=== PATIENT | male | born 1940 | race American Indian/Alaskan Native ===

== ENCOUNTER 2018-08-06 03:20 | Observation (INO) | payer MEDICARE ==
[2018-08-06 04:07] LABS: Basophils % (Auto) 0.9 % (0.0-1.8); Eosinophils # (Auto) 0.1 K/mm3 (0.0-0.4); Eosinophils % (Auto) 2.5 % (0.0-4.3); Hematocrit 41.2 % (35.5-45.6); Hemoglobin 14.1 gm/dl (11.8-15.2); Lymphocytes # (Auto) 0.5 K/mm3 (1.2-5.4); Lymphocytes % (Auto) 15.1 % (13.4-35.0); Mean Corpuscular HGB Conc 34 % (32-34); Mean Corpuscular Volume 91 fl (84-94); Monocytes # (Auto) 0.3 K/mm3 (0.0-0.8); Monocytes % (Auto) 8.5 % (0.0-7.3); Platelet Count 242 K/mm3 (140-440); Red Blood Count 4.52 M/mm3 (3.65-5.03); Red Cell Distribution Width 13.1 % (13.2-15.2)
--- NOTE | 2018-08-06 04:22 | XRay Report ---
PROCEDURE: XR CHEST 1V AP TECHNIQUE: A portable upright view of the chest was obtained. HISTORY: Chest Pain COMPARISONS: None FINDINGS: Allowing for the depth of inspiration, there are no infiltrates or effusions. The heart size is mary l. The lungs are not congested. The skeletal structures do not show any acute changes. IMPRESSION: No acute cardiopulmonary process.. This document is electronically signed by Farhad Mohan MD., Aug 06 2018 04:20:43 AM ET
[2018-08-06 04:29] LABS: BUN/Creatinine Ratio 7; Blood Urea Nitrogen 9 mg/dL (9-20); Calcium 8.7 mg/dL (8.4-10.2); Hemolysis Index 47
[2018-08-06 05:20] VITALS: BP 144/86
--- NOTE | 2018-08-06 06:17 | Emergency Department Report ---
ED General Adult HPI - General Chief complaint: Chest Pain Stated complaint: CP Time Seen by Provider: 08/06/18 06:04 Source: patient, EMS (ems notes not available at time of chart dictation), RN notes reviewed Mode of arrival: Stretcher Limitations: No Limitations - History of Present Illness Initial comments: Primary care DrKemal: Charlie This is a 77-year-old gentleman. The patient is not known to this provider previously. The patient reports no chronic medical issues. The patient presents to the emergency room with 2 complaints. His first complaint is dizziness. It started earlier on this morning, at 1:00. It was painless, describes as a sensation of movement, spinning, lightheadedness, with a sensation of painless unsteady gait. It is now resolved. It lasted for a few seconds to a few minutes. The patient currently denies headache, neck pain, abdominal pain, shortness of breath, leg pain, leg swelling. The patient endorses a secondary complaint of nontraumatic right-sided chest pain. The chest pain started earlier on this morning. It did not radiate to the back, arms or neck. There is no vomiting, shortness of breath, leg pain or leg swelling. Patient reports multiple recent airplane trips. The patient reports diaphoresis associated with his chest pain. It is now resolved. No recent aspirin use. No recent cardiac risk stratification that he is aware of. Currently back to baseline, and with no complaints. -: Sudden Location: chest Radiation: non-radiation Severity scale (0 -10): 0 Quality: aching Consistency: now resolved Improves with: none Worsens with: none - Related Data Previous Rx's Medication Instructions Recorded Last Taken Type Ibuprofen [Motrin] 600 mg PO Q8H PRN #40 tablet 06/15/14 Unknown Rx traMADol [Ultram] 50 mg PO Q4HR PRN #30 tablet 06/15/14 Unknown Rx Allergies Allergy/AdvReac Type Severity Reaction Status Date / Time No Known Allergies Allergy Unverified 06/15/14 11:48 ED Review of Systems ROS: Stated complaint: CP Other details as noted in HPI Constitutional: diaphoresis. denies: fever, malaise Eyes: denies: eye pain, eye discharge, vision change ENT: denies: epistaxis Respiratory: denies: shortness of breath Cardiovascular: chest pain Gastrointestinal: denies: abdominal pain, nausea, vomiting, hematemesis, melena, hematochezia Genitourinary: denies: urgency, dysuria Skin: denies: lesions Neurological: abnormal gait, vertigo. denies: numbness, paresthesias Psychiatric: denies: anxiety ED Past Medical Hx - Past Medical History Previous Medical History?: No - Surgical History Past Surgical History?: No - Social History Smoking Status: Never Smoker Substance Use Type: None - Medications Home Medications: Home Medications Medication Instructions Recorded Confirmed Last Taken Type Ibuprofen [Motrin] 600 mg PO Q8H PRN #40 tablet 06/15/14 Unknown Rx traMADol [Ultram] 50 mg PO Q4HR PRN #30 tablet 06/15/14 Unknown Rx ED Physical Exam - General Limitations: No Limitations General appearance: alert, in no apparent distress - Head Head exam: Present: atraumatic, normocephalic - Eye Eye exam: Present: normal appearance, PERRL, EOMI, other (visual acuity intact to finger counting, color perception, reading at a close distance). Absent: nystagmus - ENT ENT exam: Present: normal exam, normal orophraynx, mucous membranes moist, normal external ear exam - Neck Neck exam: Present: normal inspection, full ROM. Absent: tenderness, meningismus - Respiratory Respiratory exam: Present: normal lung sounds bilaterally. Absent: respiratory distress - Cardiovascular Cardiovascular Exam: Present: regular rate, normal rhythm, normal heart sounds. Absent: bradycardia, tachycardia, irregular rhythm, systolic murmur, diastolic murmur, rubs, gallop - GI/Abdominal GI/Abdominal exam: Present: soft. Absent: distended, tenderness, guarding, rebound, rigid, pulsatile mass - Rectal Rectal exam: Present: deferred - Extremities Exam Extremities exam: Present: normal inspection, full ROM, other (2+ pulses noted in the bilateral upper, lower extremities. Compartments soft. No long bony tenderness. The pelvis is stable.). Absent: pedal edema, joint swelling, calf tenderness - Back Exam Back exam: Present: normal inspection, full ROM. Absent: tenderness, CVA tenderness (R), CVA tenderness (L), paraspinal tenderness, vertebral tenderness - Neurological Exam Neurological exam: Present: alert, oriented X3, normal gait (there is no pass pointing. There is normal [id number]. His negative pronator drift.), other (Extraocular movements intact. Tongue midline. No facial droop. Facial sensation intact to light touch in the V1, V2, V3 distribution bilaterally. 5 and 5 strength in 4 extremities.. Sensation is intact to light touch in 4 extremities.). Absent: motor sensory deficit - Psychiatric Psychiatric exam: Present: normal affect, normal mood - Skin Skin exam: Present: warm, dry, intact, normal color. Absent: rash ED Course Vital Signs 08/06/18 08/06/18 08/06/18 03:24 04:11 05:16 Temperature 97.8 F Pulse Rate 76 70 Respiratory 19 19 18 Rate Blood Pressure 163/88 144/86 [Left] O2 Sat by Pulse 100 100 99 Oximetry - Reevaluation(s) Reevaluation #1: 08/06/18 08:31 d/w neurology Dr Peacock, who agrees with tia work up, chest pain risk stratification and agrees no emergent ct angio indicated at this time ED Medical Decision Making - Lab Data Result diagrams: 08/06/18 03:46 08/06/18 03:46 Vital Signs 08/06/18 08/06/18 08/06/18 03:24 04:11 05:16 Temperature 97.8 F Pulse Rate 76 70 Respiratory 19 19 18 Rate Blood Pressure 163/88 144/86 [Left] O2 Sat by Pulse 100 100 99 Oximetry Lab Results 08/06/18 08/06/18 08/06/18 Range/Units 03:46 03:46 04:44 WBC 3.4 L (4.5-11.0) K/mm3 RBC 4.52 (3.65-5.03) M/mm3 Hgb 14.1 (11.8-15.2) gm/dl Hct 41.2 (35.5-45.6) % MCV 91 (84-94) fl MCH 31 (28-32) pg MCHC 34 (32-34) % RDW 13.1 L (13.2-15.2) % Plt Count 242 (140-440) K/mm3 Lymph % (Auto) 15.1 (13.4-35.0) % Morrow % (Auto) 8.5 H (0.0-7.3) % Eos % (Auto) 2.5 (0.0-4.3) % Baso % (Auto) 0.9 (0.0-1.8) % Lymph # 0.5 L (1.2-5.4) K/mm3 Morrow # 0.3 (0.0-0.8) K/mm3 Eos # 0.1 (0.0-0.4) K/mm3 Baso # 0.0 (0.0-0.1) K/mm3 Seg Neutrophils % 73.0 H (40.0-70.0) % Seg Neutrophils # 2.5 (1.8-7.7) K/mm3 D-Dimer 163.78 (0-234) ng/mlDDU Sodium 138 (137-145) mmol/L Potassium 4.7 (3.6-5.0) mmol/L Chloride 101.6 (98-107) mmol/L Carbon Dioxide 25 (22-30) mmol/L Anion Gap 16 mmol/L BUN 9 (9-20) mg/dL Creatinine 1.3 (0.8-1.5) mg/dL Estimated GFR > 60 ml/min BUN/Creatinine Ratio 7 % Glucose 97 (75-100) mg/dL Calcium 8.7 (8.4-10.2) mg/dL Magnesium (1.7-2.3) mg/dL Total Creatine Kinase (55-170) units/L Troponin T < 0.010 (0.00-0.029) ng/mL TSH (0.270-4.200) mlU/mL 08/06/18 08/06/18 08/06/18 Range/Units 06:39 06:39 06:39 WBC (4.5-11.0) K/mm3 RBC (3.65-5.03) M/mm3 Hgb (11.8-15.2) gm/dl Hct (35.5-45.6) % MCV (84-94) fl MCH (28-32) pg MCHC (32-34) % RDW (13.2-15.2) % Plt Count (140-440) K/mm3 Lymph % (Auto) (13.4-35.0) % [place]row % (Auto) (0.0-7.3) % Eos % (Auto) (0.0-4.3) % Baso % (Auto) (0.0-1.8) % Lymph # (1.2-5.4) K/mm3 Morrow # (0.0-0.8) K/mm3 Eos # (0.0-0.4) K/mm3 Baso # (0.0-0.1) K/mm3 Seg Neutrophils % (40.0-70.0) % Seg Neutrophils # (1.8-7.7) K/mm3 D-Dimer (0-234) ng/mlDDU Sodium (137-145) mmol/L Potassium (3.6-5.0) mmol/L Chloride (98-107) mmol/L Carbon Dioxide (22-30) mmol/L Anion Gap mmol/L BUN (9-20) mg/dL Creatinine (0.8-1.5) mg/dL Estimated GFR ml/min BUN/Creatinine Ratio % Glucose (75-100) mg/dL Calcium (8.4-10.2) mg/dL Magnesium 1.90 (1.7-2.3) mg/dL Total Creatine Kinase 186 H (55-170) units/L Troponin T < 0.010 (0.00-0.029) ng/mL TSH 1.140 (0.270-4.200) mlU/mL - EKG Data -: EKG Interpreted by [facility] EKG shows normal: sinus rhythm, axis, intervals, QRS complexes, ST-T waves - EKG Data When compared to previous EKG there are: previous EKG unavailable 08/06/18 08:11 This is a normal sinus rhythm, normal intervals, normal axis, not having chest pain at this time, unremarkable EKG, not consistent with ST elevation myocardial infarction. - Radiology Data Radiology results: pending, report reviewed, image reviewed Noncontrast CT scan of the brain is negative for acute disease. X-ray the chest is negative for acute disease. - Medical Decision Making Differential diagnosis, including without limited to: Orthostasis, vagal event, structural cardiac disease, pulmonary embolus, acute coronary syndrome, transient ischemic attack Assessment and plan: 77-year-old gentleman, not tachycardic, not hypoxic, low risk by well's criteria, d-dimer negative, with resolved chest pain, resolved nonspecific neurologic symptoms. The patient has a GCS of 15. The patient has an NIH score of 0. He is therefore not a TPA candidate. Given his unremarkable neurologic examination, large vessel occlusion is very unlikely. We'll obtain remote teleneurology consult, and admit to the medical service. [facility] physician, Dr. Aguero to admit the patient to the medical service. Critical care attestation.: If time is entered above; I have spent that time in minutes in the direct care of this critically ill patient, excluding procedure time. ED Disposition Clinical Impression: History of unsteady gait, History of chest pain Disposition: OP ADMIT IP TO THIS HOSP Is pt being admited?: Yes Does the pt Need Aspirin: Yes Condition: Good Referrals: PRIMARY CARE, [Primary Care Provider] - 3-5 Days
--- NOTE | 2018-08-06 07:02 | Cat Scan Report ---
PROCEDURE: CT HEAD/BRAIN WO CON TECHNIQUE: Routine axial imaging was obtained of the brain without IV contrast. HISTORY: dizzy off balance, now resloved COMPARISONS: None FINDINGS: There is age-related formed loss. There is no evidence of acute stroke or hemorrhage. The ventricular system is appropriate in size and is symmetric. The basal cisterns appear normal. The mastoid air ce lls are well pneumatized. The calvarium appears intact. The visualized sinuses are clear. IMPRESSION: Age-related volume loss. No evidence of acute stroke or hemorrhage.. This document is electronically signed by Farhad Mohan MD., Aug 06 2018 07:00:55 AM ET
--- NOTE | 2018-08-06 08:38 | Emergency Department Report ---
HPI - General Chief Complaint: Chest Pain Time Seen by Provider: 08/06/18 06:04 - HPI HPI: [facility] Asked to see this patient in telemedicine consultation. Consultation was performed with assistance of ancillary/medical staff at bedside. Comments: Last Known normal 100 am Door Time: 350 [facility] Contacted: 816 [facility] first log in: 821 NIHSS assessment time: 824 Call back time: 830 Needle Time: no iv tpa HPI: 77 yom with hx of htn presents with acute onset of dizziness around 1 am. He return from travel [place] and was having difficulty resting. He got up to go to bathroom and felt dizzy and unsteady around 1 am. His legs gave out on him at one point and he feel but he denies any focal weakness/numbness. He has right sided chest pain at this time but denies previous MS hx or CVA hx. CT scan head in ED was negative and sxs have subsided. He denies any double vision or altered speech or worsening dizziness with change in position. VSS Gen Wn/Wd in Nad TeleStroke Assessment: LOC: 0 LOC questions: 0 LOC Commands : 0 Gaze : 0 Visual davalos : 0 Facial movements : 0 Upper limb Motor 0 Lower limb Motor 0 Limb Coordination - 0 Sensory - - 0 Language - 0 Speech - 0 Neglect / extinction - 0 NIHSS Score: 0 IMPRESSION TIA RO Stroke hypertensive urgency Medical Decision Making: Patient is not candidate for alteplase due to non focal / localizing exam Not an IR candidate as low clinical suspicion for LVO by neurologic assessment. Recommendations: - Daily antithrombotics to initiate now if no contraindication. - Further work up with Stroke labs, MRI brain, ECHO, NIVS Carotid will be deferred to inpt neurology service - Needs Inpatient Neurology consultation and follow up - Thank you for allowing us to participate in the care of your patient, if there are any questions please don't hesitate to contact us Discussed plan of care with patient/hospital staff Physician: Aviva Ross, DO [facility] ED Past Medical Hx - Past Medical History Previous Medical History?: No - Surgical History Past Surgical History?: No - Social History Smoking Status: Never Smoker Substance Use Type: None - Medications Home Medications: Home Medications Medication Instructions Recorded Confirmed Last Taken Type Ibuprofen [Motrin] 600 mg PO Q8H PRN #40 tablet 06/15/14 Unknown Rx traMADol [Ultram] 50 mg PO Q4HR PRN #30 tablet 06/15/14 Unknown Rx ED Review of Systems ROS: Stated complaint: CP Other details as noted in HPI Constitutional: diaphoresis. denies: fever, malaise Eyes: denies: eye pain, eye discharge, vision change ENT: denies: epistaxis Respiratory: denies: shortness of breath Cardiovascular: chest pain Gastrointestinal: denies: abdominal pain, nausea, vomiting, hematemesis, melena, hematochezia Genitourinary: denies: urgency, dysuria Skin: denies: lesions Neurological: abnormal gait, vertigo. denies: numbness, paresthesias Psychiatric: denies: anxiety Physical Exam - Physical Exam Vital Signs: Vital Signs 08/06/18 08/06/18 08/06/18 03:24 04:11 05:16 Temperature 97.8 F Pulse Rate 76 70 Respiratory 19 19 18 Rate Blood Pressure 163/88 144/86 [Left] O2 Sat by Pulse 100 100 99 Oximetry ED Course Vital Signs 08/06/18 08/06/18 08/06/18 03:24 04:11 05:16 Temperature 97.8 F Pulse Rate 76 70 Respiratory 19 19 18 Rate Blood Pressure 163/88 144/86 [Left] O2 Sat by Pulse 100 100 99 Oximetry ED Medical Decision Making - Lab Data Result diagrams: 08/06/18 03:46 08/06/18 03:46 Critical care attestation.: If time is entered above; I have spent that time in minutes in the direct care of this critically ill patient, excluding procedure time. ED Disposition Clinical Impression: History of unsteady gait Disposition: DC-09 OP ADMIT IP TO THIS HOSP Is pt being admited?: Yes Condition: Good Referrals: PRIMARY CARE, [Primary Care Provider] - 3-5 Days
--- NOTE | 2018-08-06 10:51 | Cat Scan Report ---
PROCEDURE: CT ANGIO CHEST TECHNIQUE: CT angiography of the chest was performed. IV contrast was administered. Axial images and coronal and sagittal reformatted images were obtained. Fan MIP reformatted images were obtained. HISTORY: r/o PE COMPARISON: None FINDINGS: There is no aortic dissection seen. There is no abnormal mediastinal or hilar mass seen. There are no abnormal pulmonary arterial filling defects seen to indicate acute pulmonary emboli. The lungs are clear. There is no pleural effusion seen. There is no pneumothorax seen. IMPRESSION: There is no aortic dissection or pulmonary embolism seen. This document is electronically signed by Lilly Clancy MD., Aug 06 2018 10:49:18 AM ET
[2018-08-06] MEDS ORDERED: ZOFRAN IV PRN (12:23)
[2018-08-06] MEDS ORDERED: TYLENOL PO PRN (12:23)
[2018-08-06] MEDS ORDERED: SODIUM CHLORIDE FLUSH SYRINGE 10 ML IV PRN ×2 (12:23)
--- NOTE | 2018-08-06 12:35 | History and Physical Report ---
History of Present Illness Date of examination: 08/06/18 Date of admission: 08/06/18 08:13 Chief complaint: cp History of present illness: This is a 77-year-old gentleman with no significant PMH who presents to the emergency room with 2 complaints of dizziness and right sided CP. The dizziness started earlier this morning, at 1:00 described as lightheadedness that is now resolved. Duration was for a few seconds to a few minutes. The patient denies headache, neck pain, abdominal pain, shortness of breath, leg pain, leg swelling. His secondary complaint of right-sided chest pain. The chest pain started shortly after at approximately 2am and lasted for an hour. It did not radiate to the back, arms or neck. There is no vomiting, shortness of breath, leg pain or leg swelling. Patient reports multiple recent airplane trips to [place]. The patient reports diaphoresis associated with his chest pain. The CP is now resolved. No recent aspirin use. Past History Past Medical History: No medical history Past Surgical History: No surgical history Social history: no significant social history Family history: no significant family history Medications and Allergies Allergies Allergy/AdvReac Type Severity Reaction Status Date / Time No Known Allergies Allergy Unverified 06/15/14 11:48 Home Medications Medication Instructions Recorded Confirmed Last Taken Type No Known Home Medications [No 08/06/18 08/06/18 Unknown History Reported Home Medications] Active Meds: Active Medications Acetaminophen (Tylenol) 650 mg PO Q4H PRN PRN Reason: Pain MILD(1-3)/Fever >100.5/BRONSON Enoxaparin Sodium (Lovenox) 40 mg SUB-Q QDAY REDD Ondansetron HCl (Zofran) 4 mg IV Q8H PRN PRN Reason: Nausea And Vomiting Sodium Chloride (Sodium Chloride Flush Syringe 10 Ml) 10 ml IV BID REDD Sodium Chloride (Sodium Chloride Flush Syringe 10 Ml) 10 ml IV PRN PRN PRN Reason: LINE FLUSH Sodium Chloride (Sodium Chloride Flush Syringe 10 Ml) 10 ml IV PRN PRN PRN Reason: LINE FLUSH Review of Systems All systems: negative Exam - Constitutional Vitals: Temp Pulse Resp BP Pulse Ox 97.8 F 70 19 144/86 100 08/06/18 03:24 08/06/18 05:16 08/06/18 10:27 08/06/18 05:16 08/06/18 10:27 General appearance: Present: no acute distress, well-nourished - EENT Eyes: Present: PERRL ENT: hearing intact, clear oral mucosa - Neck Neck: Present: supple, normal ROM - Respiratory Respiratory effort: normal Respiratory: bilateral: CTA - Cardiovascular Heart Sounds: Present: S1 & S2. Absent: rub, click - Extremities Extremities: pulses symmetrical, No edema Peripheral Pulses: within normal limits - Abdominal General gastrointestinal: Present: soft, non-tender, non-distended, normal bowel sounds Male genitourinary: Present: normal - Integumentary Integumentary: Present: clear, warm, dry - Musculoskeletal Musculoskeletal: gait normal, strength equal bilaterally - Psychiatric Psychiatric: appropriate mood/affect, intact judgment & insight - Neurologic Neurologic: CNII-XII intact, moves all extremities Results - Labs CBC & Chem 7: 08/06/18 03:46 08/06/18 03:46 Labs: Laboratory Last Values WBC 3.4 K/mm3 (4.5-11.0) L 08/06/18 03:46 RBC 4.52 M/mm3 (3.65-5.03) 08/06/18 03:46 Hgb 14.1 gm/dl (11.8-15.2) 08/06/18 03:46 Hct 41.2 % (35.5-45.6) 08/06/18 03:46 MCV 91 fl (84-94) 08/06/18 03:46 MCH 31 pg (28-32) 08/06/18 03:46 MCHC 34 % (32-34) 08/06/18 03:46 RDW 13.1 % (13.2-15.2) L 08/06/18 03:46 Plt Count 242 K/mm3 (140-440) 08/06/18 03:46 Lymph % (Auto) 15.1 % (13.4-35.0) 08/06/18 03:46 Surry % (Auto) 8.5 % (0.0-7.3) H 08/06/18 03:46 Eos % (Auto) 2.5 % (0.0-4.3) 08/06/18 03:46 Baso % (Auto) 0.9 % (0.0-1.8) 08/06/18 03:46 Lymph # 0.5 K/mm3 (1.2-5.4) L 08/06/18 03:46 [place] # 0.3 K/mm3 (0.0-0.8) 08/06/18 03:46 Eos # 0.1 K/mm3 (0.0-0.4) 08/06/18 03:46 Baso # 0.0 K/mm3 (0.0-0.1) 08/06/18 03:46 Seg Neutrophils % 73.0 % (40.0-70.0) H 08/06/18 03:46 Seg Neutrophils # 2.5 K/mm3 (1.8-7.7) 08/06/18 03:46 163.78 ng/mlDDU (0-234) 08/06/18 04:44 Sodium 138 mmol/L (137-145) 08/06/18 03:46 Potassium 4.7 mmol/L (3.6-5.0) 08/06/18 03:46 Chloride 101.6 mmol/L (98-107) 08/06/18 03:46 Carbon Dioxide 25 mmol/L (22-30) 08/06/18 03:46 16 mmol/L 08/06/18 03:46 BUN 9 mg/dL (9-20) 08/06/18 03:46 1.3 mg/dL (0.8-1.5) 08/06/18 03:46 Estimated GFR > 60 ml/min 08/06/18 03:46 7 % 08/06/18 03:46 Glucose 97 mg/dL (75-100) 08/06/18 03:46 Calcium 8.7 mg/dL (8.4-10.2) 08/06/18 03:46 Magnesium 1.90 mg/dL (1.7-2.3) 08/06/18 06:39 186 units/L (55-170) H 08/06/18 06:39 < 0.010 ng/mL (0.00-0.029) 08/06/18 09:22 TSH 1.140 mlU/mL (0.270-4.200) 08/06/18 06:39 Assessment and Plan Assessment and plan: Chest pain. Given his hx of multiple long plane trips, we will obtain CTA chest to r/o PE. Cardiology consult and consider stress test if Cards is in agreement Presyncope/Dizziness. F/U carotid Doppler and ECHO.
--- NOTE | 2018-08-06 13:24 | Event Note ---
Date: 08/06/18 Cardiology consultation requested. Pt left AMA prior to evaluation. Seda STAFFORD NP / DR. ARIAS
[2018-08-06] MEDS ORDERED: SODIUM CHLORIDE FLUSH SYRINGE 10 ML IV SCH (22:00)
--- NOTE | 2018-08-07 07:15 | Discharge Summary ---
Providers - Providers Date of Admission: 08/06/18 08:13 Date of discharge: 08/06/18 Attending physician: ILENE READ 08/06/18 Consult to Cardiac Rehabilitation [CONS] Routine Reason For Exam: Phase I 08/06/18 06:16 Consult to Physician [CONS] Urgent Comment: Consulting Provider: CEE VAZQUEZ Physician Instructions: Reason For Exam: tia Primary care physician: DUMPCART DRIVER Hospitalization Reason for admission: cp Condition: Good Hospital course: This is a 77-year-old gentleman with no significant PMH who presented to the emergency room with 2 complaints of dizziness and right sided CP. 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 It did not radiate to the back, arms or neck. There was no vomiting, shortness of breath, leg pain or leg swelling. Patient reported multiple recent airplane trips to [place]. The patient underwent CT of the chest to rule out PE which is found to be negative. Patient also had plans for cardiology consultation but left AMA before any other evaluation. Dedicated discharge time 32 minutes. Disposition: DC-07 LEFT AGAINST MED ADVICE Core Measure Documentation - Palliative Care Palliative Care/ Comfort Measures: Not Applicable - Core Measures Any of the following diagnoses?: none Exam - Constitutional Vitals: Temp Pulse Resp BP Pulse Ox 97.8 F 70 19 144/86 100 08/06/18 03:24 08/06/18 05:16 08/06/18 10:27 08/06/18 05:16 08/06/18 10:27 Plan Follow up with: JOLEEN BALLARD MD [Primary Care Provider] - 3-5 Days
[2018-08-07] MEDS ORDERED: LOVENOX SUB-Q SCH (10:00)
== END 2018-08-06 15:54 | disposition left against medical advice (07) ==
LOC: ED 03:20 → 4A 08:13
PROVIDERS: ADMIT Hospitalist; ATTEND Hospitalist
DX: R07.89 Other chest pain (principal); R55 Syncope and collapse; R42 Dizziness and giddiness; Z79.899 Other long term (current) drug therapy
CPT/HCPCS: 36415; 70450; 71045; 71275; 80048; 82550; 83735; 84443; 84484; 85025; 85379; 93005; 93010; 99284; G0378; Q9967